=== PATIENT | male | born 1990 | race Two or more races ===

== ENCOUNTER 2019-08-20 11:31 | Emergency (ER) | payer MEDICAID, OTHER ==
[~2019-08-20] VITALS: Ht 172.7 cm; Wt 81.6 kg
[2019-08-20 11:41] VITALS: BP 172/125
[2019-08-20] MEDS ORDERED: IBUPROFEN 800 MG TAB PO ONE (12:45)
[2019-08-20] MEDS ORDERED: cefTRIAXone SOD 1,000 MG VL IM ONE (12:45)
== END 2019-08-20 13:37 | disposition home or self-care (01) ==
LOC: ER 11:31 → EDBD 11:31 → ER 13:37
DX: H66.92 Otitis media, unspecified, left ear (principal); F17.210 Nicotine dependence, cigarettes, uncomplicated
CPT/HCPCS: 96372; 99283; J0696